=== PATIENT | male | born 1990 | race Caucasian/White ===

== ENCOUNTER 2019-03-30 13:33 | Emergency (ER) | payer SELFPAY ==
[~2019-03-30] VITALS: Ht 175.3 cm; Wt 81.6 kg
[2019-03-30 13:42] VITALS: BP_SYST 151
[2019-03-30 14:50] VITALS: BP_SYST 142
== END 2019-03-30 14:49 | disposition home or self-care (01) ==
LOC: SED 13:33
DX: R55 Syncope and collapse (principal); F17.200 Nicotine dependence, unspecified, uncomplicated; Z71.6 Tobacco abuse counseling
CPT/HCPCS: 93005; 99283